=== PATIENT | female | born 1995 | race Caucasian/White ===

== ENCOUNTER 2016-06-19 18:37 | Outpatient (CLI) | payer OTHER | END 2016-06-19 21:23 | disposition home or self-care (01) | LOC: GENOP 18:37 | DX: O26.893 Other specified pregnancy related conditions, third trimester (principal); R10.9 Unspecified abdominal pain; R11.0 Nausea; N93.9 Abnormal uterine and vaginal bleeding, unspecified; Z3A.36 36 weeks gestation of pregnancy | CPT/HCPCS: 81001; G0463; J2550; J7120 ==

== ENCOUNTER 2016-07-09 10:17 | Inpatient (IN) | payer OTHER ==
[2016-07-09 11:33] LABS: HEMOGLOBIN 10.7 gm/dl (12.3-15.3); RED BLOOD COUNT 3.53 M/UL (4.00-5.10); WHITE BLOOD COUNT 11.1 K/UL (4.5-11.0)
[2016-07-10 03:02] LABS: HEMOGLOBIN 9.2 gm/dl (12.3-15.3)
== END 2016-07-10 17:21 | disposition home or self-care (01) | DRG 775 ==
LOC: GENOP 10:17 → OB 11:01
PROVIDERS: Obstetrics & Gynecology; ADMIT Obstetrics & Gynecology
PROC: 10E0XZZ Delivery of Products of Conception, External Approach (ICD-10-PCS; principal; 2016-07-09)
PROC: 3E0R3CZ (ICD-10-PCS; 2016-07-09)
PROC: 3E0234Z Introduction of Serum, Toxoid and Vaccine into Muscle, Percutaneous Approach (ICD-10-PCS; 2016-07-09)
DX: O69.81X0 Labor and delivery complicated by cord around neck, without compression, not applicable or unspecified (principal); O99.334 Smoking (tobacco) complicating childbirth; F17.200 Nicotine dependence, unspecified, uncomplicated; O99.214 Obesity complicating childbirth; E66.9 Obesity, unspecified; Z23 Encounter for immunization; Z68.35 Body mass index [BMI] 35.0-35.9, adult; Z80.1 Family history of malignant neoplasm of trachea, bronchus and lung; Z80.8 Family history of malignant neoplasm of other organs or systems; Z82.49 Family history of ischemic heart disease and other diseases of the circulatory system
CPT/HCPCS: 36415; 81001; 82800; 83518; 85014; 85018; 85025; 90715; J2590; J2795; J7120

== ENCOUNTER 2020-12-08 19:06 | Emergency (ER) | payer OTHER ==
[~2020-12-08 19:06] MED LIST: FEOSOL325 MG PO; PRENATAL VITAM1 EAC8 PO
[2020-12-08] MEDS ORDERED: NAPROXEN500 MG PO (19:57)
[2020-12-08] MEDS ORDERED: PREDNISONE50 MG PO (19:57)
[2020-12-08] MEDS ORDERED: NORFLEX 100 MG100 MG PO (19:57)
== END 2020-12-08 20:18 | disposition home or self-care (01) ==
LOC: ER1 19:06
DX: M54.5 Low back pain (principal); F17.290 Nicotine dependence, other tobacco product, uncomplicated
CPT/HCPCS: 72100; 96372; 99283; J1885